=== PATIENT | male | born 1935 | race Caucasian/White ===

== ENCOUNTER 2022-06-22 18:28 | Inpatient (IN) | payer MEDICARE ==
[2022-06-22] MEDS ORDERED: Acetaminophen 325 MG Suppository ONE (18:54)
[2022-06-22] MEDS ORDERED: Acetaminophen 650 MG Suppository ONE (18:54)
[2022-06-22 19:11] LABS: #Basophils 0.1 thou/uL (0.0-0.2); #Lymphocytes 0.8 thou/uL (1.20-3.40); #Monocytes 0.7 thou/uL (0.11-0.59); #Neutrophils 5.6 thou/uL (1.40-6.50); %Basophils 0.7 % (0.0-1.0); %Eosinophils 0.5 % (0.0-10.0); %Lymphocytes 10.8 % (21.0-51.0); %Monocytes 10.1 % (0.0-10.0); %Neutrophils 77.8 % (42.0-75.0); Hemoglobin 14.8 g/dL (14.0-18.0); Mean Corpuscular HGB CONC 35.1 g/dL (32.0-36.0); Mean Corpuscular Hemoglobin 34.3 pg (27.0-31.0); Mean Corpuscular Volume 97.6 fl (78.0-98.0); Mean Platelet Volume 7.1 fL (7.4-10.4); Platelet Count 161 10x3/uL (130-400); RBC Distribution Width 11.6 % (11.5-14.5); White Blood Cell (WBC) Count 7.2 10x3/uL (4.8-10.8)
[2022-06-22 19:40] LABS: ALT (SGPT) 13 U/L (8-55); AST (SGOT) 22 U/L (5-34); Albumin 3.7 g/dL (3.4-4.8); Alkaline Phosphatase 55 U/L (40-110); Anion Gap 14 mmol/L (10-20); BUN (Urea Nitrogen) 17 mg/dL (8.4-25.7); Bilirubin, Total 0.8 mg/dL (0.2-1.2); Calc. Creatinine Clearance 0 mL/min (70-130); Calcium 9.9 mg/dL (7.8-10.44); Carbon Dioxide 21 mmol/L (23-31); Chloride 105 mmol/L (98-107); Estimated GFR 51; Glucose 91 mg/dL (83-110); Potassium 4.1 mmol/L (3.5-5.1); Protein, Total 6.7 g/dL (5.8-8.1); Sodium 136 mmol/L (136-145)
[2022-06-22 20:05] LABS: Bacteria/HPF None Seen HPF (None Seen); Bilirubin Negative (Negative); Blood, Urine 2+ (Negative); Clarity Turbid (Clear); Glucose, Urine (Dipstick) Normal (Negative); Ketone, Urine Trace mg/dL (Negative); Leukocyte 25 Leu/uL (Negative); Nitrite Negative (Negative); Protein, Urine (Dipstick) 10 mg/dL (Neg-Trace); Specific Gravity, Urine 1.017 (1.002-1.036); Squamous Epithelial None Seen HPF (0-3); Urobilinogen Normal mg/dL (Less than 2); pH, Urine 7.5 (5.0-9.0)
[2022-06-22] MEDS ORDERED: Ondansetron PF 4 MG/2 ML Vial IVP PRN (21:28)
[2022-06-22] MEDS ORDERED: Benzonatate 100 MG CAP PO PRN (21:28)
[2022-06-22] MEDS ORDERED: Acetaminophen 650 MG Suppository PR PRN (21:28)
[2022-06-22] MEDS ORDERED: Albuterol 200 PUFF (6.7GM INHALER) INH PRN (21:28)
[2022-06-22] MEDS ORDERED: Ondansetron ODT 4 MG TAB PO PRN (21:28)
[2022-06-22] MEDS ORDERED: Acetaminophen 325 MG TAB PO PRN (21:28)
[2022-06-22] MEDS ORDERED: Doxycycline 100 MG in Syringe 0 ML IVPB SCH (22:00)
[2022-06-22 22:24] LABS: Lactic Acid 2.2 mmol/L (0.5-2.2)
[2022-06-22 23:28] VITALS: BMI 29.9
[2022-06-22] MEDS ORDERED: Cefepime 1 GM in Sodium Chloride 0.9% 100 ML IVPB SCH (23:59)
[2022-06-23] MEDS: Sodium Chloride 0.9% 1,000 ML IV SCH ×2 (00:23→11:56)
[2022-06-23] MEDS: Doxycycline 100 MG in Sodium Chloride 0.9% 100 ML IVPB SCH ×3 (00:23→23:31)
[2022-06-23 06:28] LABS: Hemoglobin 13.3 g/dL (14.0-18.0); Mean Corpuscular HGB CONC 34.3 g/dL (32.0-36.0); Mean Corpuscular Volume 96.2 fl (78.0-98.0); Mean Platelet Volume 7.2 fL (7.4-10.4); Platelet Count 133 10x3/uL (130-400); RBC Distribution Width 11.5 % (11.5-14.5); Red Blood Cell (RBC) Count 4.04 mill/uL (4.70-6.10); White Blood Cell (WBC) Count 6.5 10x3/uL (4.8-10.8)
[2022-06-23 06:45] LABS: Anion Gap 12 mmol/L (10-20); BUN (Urea Nitrogen) 15 mg/dL (8.4-25.7); Calc. Creatinine Clearance 63 mL/min (70-130); Calcium 9.1 mg/dL (7.8-10.44); Carbon Dioxide 21 mmol/L (23-31); Chloride 107 mmol/L (98-107); Estimated GFR 59; Glucose 88 mg/dL (83-110); Potassium 3.9 mmol/L (3.5-5.1); Sodium 136 mmol/L (136-145)
[2022-06-23 06:57] LABS: Band 12 % (5-11); Lymphocytes 13 % (21-51); MDiff Complete? YES; Monocytes 20 % (0-10); Neutrophil 55 % (42-75)
[2022-06-23] MEDS: Cholecalciferol (Vitamin D3) 400 UNITS TAB PO SCH (09:28)
[2022-06-23] MEDS: Ascorbic Acid 500 mg Chewable Tablet PO SCH (09:28)
[2022-06-23] MEDS: Zinc Sulfate 220 MG CAP PO SCH (09:28)
[2022-06-23] MEDS: Cefepime 2 GM in Sodium Chloride 0.9% 100 ML IVPB SCH ×2 (11:56→23:31)
[2022-06-24] MEDS: Levothyroxine Sodium 50 MCG TAB PO SCH (06:21)
[2022-06-24 08:43] LABS: Anion Gap 14 mmol/L (10-20); BUN (Urea Nitrogen) 14 mg/dL (8.4-25.7); Calc. Creatinine Clearance 73 mL/min (70-130); Calcium 8.4 mg/dL (7.8-10.44); Carbon Dioxide 18 mmol/L (23-31); Chloride 108 mmol/L (98-107); Estimated GFR 71; Glucose 77 mg/dL (83-110); Magnesium 1.8 mg/dL (1.6-2.6); Potassium 3.7 mmol/L (3.5-5.1); Sodium 136 mmol/L (136-145)
[2022-06-24 08:51] LABS: Hemoglobin 13.5 g/dL (14.0-18.0); Mean Corpuscular HGB CONC 33.8 g/dL (32.0-36.0); Mean Corpuscular Hemoglobin 33.2 pg (27.0-31.0); Mean Corpuscular Volume 98.1 fl (78.0-98.0); Mean Platelet Volume 7.2 fL (7.4-10.4); Platelet Count 128 10x3/uL (130-400); RBC Distribution Width 11.6 % (11.5-14.5); Red Blood Cell (RBC) Count 4.06 mill/uL (4.70-6.10); White Blood Cell (WBC) Count 6.4 10x3/uL (4.8-10.8)
[2022-06-24] MEDS ORDERED: Dexamethasone 6 MG in Sodium Chloride 0.9% 50 ML IVPB SCH (09:00)
[2022-06-24] MEDS: Cholecalciferol (Vitamin D3) 400 UNITS TAB PO SCH (09:21)
[2022-06-24] MEDS: Ascorbic Acid 500 mg Chewable Tablet PO SCH (09:21)
[2022-06-24] MEDS: Finasteride 5 MG TAB PO SCH (09:21)
[2022-06-24] MEDS: Apixaban 5 MG TAB PO SCH ×2 (09:21→20:31)
[2022-06-24] MEDS: Zinc Sulfate 220 MG CAP PO SCH (09:21)
[2022-06-24] MEDS: Rosuvastatin 5 MG TAB PO SCH (09:22)
[2022-06-24] MEDS: Dexamethasone 4 mg/ml Vial SLOW IVP SCH (09:22)
[2022-06-24 11:19] LABS: Band 12 % (5-11); Lymphocytes 27 % (21-51); MDiff Complete? YES; Monocytes 9 % (0-10); Neutrophil 45 % (42-75); Platelet Morphology Comment Appears Decreased; RBC Morphology Normal; Reactive Lymphocytes 7 % (0-10)
[2022-06-24] MEDS: Cefepime 2 GM in Sodium Chloride 0.9% 100 ML IVPB SCH ×2 (12:35→23:51)
[2022-06-24] MEDS: Doxycycline 100 MG in Sodium Chloride 0.9% 100 ML IVPB SCH (13:43)
[2022-06-25] MEDS: Doxycycline 100 MG in Sodium Chloride 0.9% 100 ML IVPB SCH ×2 (01:19→12:10)
[2022-06-25] MEDS: Levothyroxine Sodium 50 MCG TAB PO SCH (05:36)
[2022-06-25] MEDS: Cholecalciferol (Vitamin D3) 400 UNITS TAB PO SCH (08:19)
[2022-06-25] MEDS: Ascorbic Acid 500 mg Chewable Tablet PO SCH (08:19)
[2022-06-25] MEDS: Finasteride 5 MG TAB PO SCH (08:22)
[2022-06-25] MEDS: Zinc Sulfate 220 MG CAP PO SCH (08:22)
[2022-06-25] MEDS: Apixaban 5 MG TAB PO SCH (08:22)
[2022-06-25] MEDS: Rosuvastatin 5 MG TAB PO SCH (08:22)
[2022-06-25] MEDS: Dexamethasone 4 mg/ml Vial SLOW IVP SCH (08:22)
[2022-06-25 08:30] LABS: Anion Gap 14 mmol/L (10-20); BUN (Urea Nitrogen) 18 mg/dL (8.4-25.7); Calc. Creatinine Clearance 72 mL/min (70-130); Calcium 9.6 mg/dL (7.8-10.44); Carbon Dioxide 19 mmol/L (23-31); Chloride 109 mmol/L (98-107); Estimated GFR 70; Glucose 140 mg/dL (83-110); Potassium 4.1 mmol/L (3.5-5.1); Sodium 138 mmol/L (136-145)
[2022-06-25] MEDS: Cefepime 2 GM in Sodium Chloride 0.9% 100 ML IVPB SCH (11:29)
[2022-06-25] MEDS: Vancomycin 1.5 GRAM/300 ML BAG 1.5 GM in Premix Bag 1 BAG IVPB SCH (17:01)
[2022-06-25] MEDS ORDERED: VANCOMYCIN 1.25 GM/250 ML BAG IVPB SCH (21:00)
[2022-06-25] MEDS: Apixaban 2.5 MG TAB PO SCH (21:08)
[2022-06-25] MEDS: NIRMATRELVIR 150 MG/RITONAVIR 100 MG PO SCH (21:09)
[2022-06-26] MEDS: Levothyroxine Sodium 50 MCG TAB PO SCH (05:45)
[2022-06-26 07:24] LABS: #Lymphocytes 1.4 thou/uL (1.20-3.40); #Monocytes 0.5 thou/uL (0.11-0.59); #Neutrophils 12.8 thou/uL (1.40-6.50); %Eosinophils 0.1 % (0.0-10.0); %Lymphocytes 9.5 % (21.0-51.0); %Monocytes 3.6 % (0.0-10.0); %Neutrophils 86.8 % (42.0-75.0); Hemoglobin 14.1 g/dL (14.0-18.0); Mean Corpuscular HGB CONC 34.6 g/dL (32.0-36.0); Mean Corpuscular Hemoglobin 33.4 pg (27.0-31.0); Mean Corpuscular Volume 96.5 fl (78.0-98.0); Mean Platelet Volume 7.8 fL (7.4-10.4); Platelet Count 160 10x3/uL (130-400); RBC Distribution Width 11.5 % (11.5-14.5); Red Blood Cell (RBC) Count 4.22 mill/uL (4.70-6.10); White Blood Cell (WBC) Count 14.8 10x3/uL (4.8-10.8)
[2022-06-26 07:36] LABS: Anion Gap 11 mmol/L (10-20); BUN (Urea Nitrogen) 20 mg/dL (8.4-25.7); CRP (Inflammatory) 1.61 mg/dL (= or < 0.5); Calc. Creatinine Clearance 88 mL/min (70-130); Calcium 9.7 mg/dL (7.8-10.44); Carbon Dioxide 21 mmol/L (23-31); Chloride 109 mmol/L (98-107); Estimated GFR 84; Glucose 130 mg/dL (83-110); Sodium 137 mmol/L (136-145)
[2022-06-26] MEDS: Dexamethasone 4 MG TAB PO SCH (09:00)
[2022-06-26] MEDS: Ascorbic Acid 500 mg Chewable Tablet PO SCH (09:01)
[2022-06-26] MEDS: Apixaban 2.5 MG TAB PO SCH ×2 (09:01→20:24)
[2022-06-26] MEDS: Cholecalciferol (Vitamin D3) 400 UNITS TAB PO SCH (09:01)
[2022-06-26] MEDS: Zinc Sulfate 220 MG CAP PO SCH (09:01)
[2022-06-26] MEDS: Finasteride 5 MG TAB PO SCH (09:01)
[2022-06-26] MEDS: NIRMATRELVIR 150 MG/RITONAVIR 100 MG PO SCH ×2 (09:02→20:24)
[2022-06-26] MEDS: Vancomycin 1.5 GRAM/300 ML BAG 1.5 GM in Premix Bag 1 BAG IVPB SCH (16:20)
[2022-06-27] MEDS: Levothyroxine Sodium 50 MCG TAB PO SCH (05:39)
[2022-06-27 06:45] LABS: #Lymphocytes 1.7 thou/uL (1.20-3.40); #Monocytes 0.6 thou/uL (0.11-0.59); #Neutrophils 13.1 thou/uL (1.40-6.50); %Eosinophils 0.1 % (0.0-10.0); Hemoglobin 14.4 g/dL (14.0-18.0); Mean Corpuscular HGB CONC 34.5 g/dL (32.0-36.0); Mean Corpuscular Hemoglobin 33.4 pg (27.0-31.0); Mean Corpuscular Volume 96.7 fl (78.0-98.0); Mean Platelet Volume 7.6 fL (7.4-10.4); Platelet Count 163 10x3/uL (130-400); RBC Distribution Width 11.7 % (11.5-14.5); White Blood Cell (WBC) Count 15.4 10x3/uL (4.8-10.8)
[2022-06-27 07:02] LABS: Anion Gap 12 mmol/L (10-20); BUN (Urea Nitrogen) 20 mg/dL (8.4-25.7); CRP (Inflammatory) 0.61 mg/dL (= or < 0.5); Calc. Creatinine Clearance 91 mL/min (70-130); Calcium 9.5 mg/dL (7.8-10.44); Carbon Dioxide 21 mmol/L (23-31); Chloride 108 mmol/L (98-107); Estimated GFR 84; Glucose 126 mg/dL (83-110); Potassium 3.9 mmol/L (3.5-5.1); Sodium 137 mmol/L (136-145)
[2022-06-27] MEDS: NIRMATRELVIR 150 MG/RITONAVIR 100 MG PO SCH ×2 (08:48→20:27)
[2022-06-27] MEDS: Ascorbic Acid 500 mg Chewable Tablet PO SCH (08:49)
[2022-06-27] MEDS: Apixaban 2.5 MG TAB PO SCH ×2 (08:50→20:27)
[2022-06-27] MEDS: Cholecalciferol (Vitamin D3) 400 UNITS TAB PO SCH (08:50)
[2022-06-27] MEDS: Dexamethasone 4 MG TAB PO SCH (08:50)
[2022-06-27] MEDS: Zinc Sulfate 220 MG CAP PO SCH (08:51)
[2022-06-27] MEDS: Finasteride 5 MG TAB PO SCH (08:51)
[2022-06-27 16:56] LABS: Vancomycin, Trough 6.6 ug/mL
[2022-06-28] MEDS: Levothyroxine Sodium 50 MCG TAB PO SCH (05:06)
[2022-06-28 06:57] LABS: #Lymphocytes 1.6 thou/uL (1.20-3.40); #Monocytes 0.8 thou/uL (0.11-0.59); #Neutrophils 12.1 thou/uL (1.40-6.50); %Basophils 0.1 % (0.0-1.0); %Lymphocytes 11.2 % (21.0-51.0); %Monocytes 5.2 % (0.0-10.0); %Neutrophils 83.5 % (42.0-75.0); Hemoglobin 14.2 g/dL (14.0-18.0); Mean Corpuscular HGB CONC 34.2 g/dL (32.0-36.0); Mean Corpuscular Hemoglobin 32.7 pg (27.0-31.0); Mean Corpuscular Volume 95.7 fl (78.0-98.0); Mean Platelet Volume 7.4 fL (7.4-10.4); Platelet Count 160 10x3/uL (130-400); RBC Distribution Width 11.5 % (11.5-14.5); Red Blood Cell (RBC) Count 4.33 mill/uL (4.70-6.10); White Blood Cell (WBC) Count 14.5 10x3/uL (4.8-10.8)
[2022-06-28 07:25] LABS: Anion Gap 11 mmol/L (10-20); BUN (Urea Nitrogen) 28 mg/dL (8.4-25.7); Calc. Creatinine Clearance 79 mL/min (70-130); Calcium 9.6 mg/dL (7.8-10.44); Carbon Dioxide 22 mmol/L (23-31); Chloride 106 mmol/L (98-107); Estimated GFR 78; Glucose 134 mg/dL (83-110); Potassium 3.9 mmol/L (3.5-5.1); Sodium 135 mmol/L (136-145)
[2022-06-28] MEDS: NIRMATRELVIR 150 MG/RITONAVIR 100 MG PO SCH ×2 (08:50→20:22)
[2022-06-28] MEDS: Zinc Sulfate 220 MG CAP PO SCH (08:51)
[2022-06-28] MEDS: Apixaban 2.5 MG TAB PO SCH ×2 (08:51→20:22)
[2022-06-28] MEDS: Finasteride 5 MG TAB PO SCH (08:51)
[2022-06-28] MEDS: Cholecalciferol (Vitamin D3) 400 UNITS TAB PO SCH (08:51)
[2022-06-28] MEDS: Ascorbic Acid 500 mg Chewable Tablet PO SCH (08:51)
[2022-06-28] MEDS ORDERED: Senokot S 8.6-50 MG TAB PO PRN (19:52)
[2022-06-28] MEDS ORDERED: Bisacodyl 5 MG TAB PO PRN (19:52)
[2022-06-29] MEDS: Levothyroxine Sodium 50 MCG TAB PO SCH (05:27)
[2022-06-29 05:40] VITALS: TEMP 97.8
[2022-06-29 07:10] LABS: Hemoglobin 14.7 g/dL (14.0-18.0); Mean Corpuscular HGB CONC 34.1 g/dL (32.0-36.0); Mean Corpuscular Hemoglobin 32.8 pg (27.0-31.0); Mean Corpuscular Volume 96.5 fl (78.0-98.0); Mean Platelet Volume 7.4 fL (7.4-10.4); Platelet Count 178 10x3/uL (130-400); RBC Distribution Width 11.4 % (11.5-14.5); Red Blood Cell (RBC) Count 4.47 mill/uL (4.70-6.10); White Blood Cell (WBC) Count 14.4 10x3/uL (4.8-10.8)
[2022-06-29 07:17] LABS: Anion Gap 13 mmol/L (10-20); BUN (Urea Nitrogen) 28 mg/dL (8.4-25.7); Calc. Creatinine Clearance 78 mL/min (70-130); Calcium 9.5 mg/dL (7.8-10.44); Carbon Dioxide 21 mmol/L (23-31); Chloride 106 mmol/L (98-107); Estimated GFR 77; Glucose 110 mg/dL (83-110); Potassium 3.8 mmol/L (3.5-5.1); Sodium 136 mmol/L (136-145)
[2022-06-29 08:31] LABS: Band 1 % (5-11); Lymphocytes 14 % (21-51); MDiff Complete? YES; Monocytes 7 % (0-10); Neutrophil 77 % (42-75); RBC Morphology Normal; Reactive Lymphocytes 1 % (0-10)
[2022-06-29] MEDS: Apixaban 2.5 MG TAB PO SCH (08:49)
[2022-06-29] MEDS: Ascorbic Acid 500 mg Chewable Tablet PO SCH (08:49)
[2022-06-29] MEDS: Cholecalciferol (Vitamin D3) 400 UNITS TAB PO SCH (08:49)
[2022-06-29] MEDS: Zinc Sulfate 220 MG CAP PO SCH (08:50)
[2022-06-29] MEDS: Finasteride 5 MG TAB PO SCH (08:50)
[2022-06-29] MEDS: NIRMATRELVIR 150 MG/RITONAVIR 100 MG PO SCH (08:50)
[2022-06-29 13:37] VITALS: BP 136/77
== END 2022-06-29 15:16 | disposition home or self-care (01) | DRG 871 ==
LOC: ERS 18:28 → EDBD 20:41 → T4-A 20:41
PROVIDERS: ADMIT Student in an Organized Health Care Education/Training Program; ATTEND Internal Medicine
PROC: 3E03329 Introduction of Other Anti-infective into Peripheral Vein, Percutaneous Approach (ICD-10-PCS; principal; 2022-06-22)
PROC: 8E0ZXY6 Isolation (ICD-10-PCS; 2022-06-22)
PROC: 3E0333Z Introduction of Anti-inflammatory into Peripheral Vein, Percutaneous Approach (ICD-10-PCS; 2022-06-24)
PROC: XW0DXF5 Introduction of Other New Technology Therapeutic Substance into Mouth and Pharynx, External Approach, New Technology Group 5 (ICD-10-PCS; 2022-06-25)
DX: A41.81 Sepsis due to Enterococcus (principal); G93.41 Metabolic encephalopathy; J12.82 Pneumonia due to coronavirus disease 2019; U07.1 COVID-19; J18.9 Pneumonia, unspecified organism; N39.0 Urinary tract infection, site not specified; E87.1 Hypo-osmolality and hyponatremia; A41.50 Gram-negative sepsis, unspecified; F03.90 Unspecified dementia, unspecified severity, without behavioral disturbance, psychotic disturbance, mood disturbance, and anxiety; N18.9 Chronic kidney disease, unspecified; I51.7 Cardiomegaly; N40.0 Benign prostatic hyperplasia without lower urinary tract symptoms; R65.20 Severe sepsis without septic shock; E03.9 Hypothyroidism, unspecified; R53.81 Other malaise; Z79.01 Long term (current) use of anticoagulants; Z79.899 Other long term (current) drug therapy; Z79.890 Hormone replacement therapy
CPT/HCPCS: 36415; 51701; 71045; 80048; 80053; 80202; 81003; 81015; 83605; 83735; 84145; 84443; 85025; 86140; 87040; 87077; 87086; 87186; 93005; J0692; J1100; J1650; J3370; J3490; J7050; J8540; U0003; U0005